=== PATIENT | female | born 1970 | race Caucasian/White ===

== ENCOUNTER 2019-04-27 13:01 | Emergency (ER) | payer MEDICAID ==
[~2019-04-27] VITALS: Ht 170.2 cm; Wt 68.0 kg
[2019-04-27 13:21] VITALS: BP_SYST 141
--- NOTE | 2019-04-27 13:26 | NUR ---
Patient triaged and placed in waiting room. VSS and patient appears in no acute distress at this time. Accompanied by self, awaiting available bed, and MD notified of need for MSE.
--- NOTE | 2019-04-27 14:25 | NUR ---
Patient to ER bed 03 for evaluation. Side rails up. Report given to Aminata LORA.
[2019-04-27] MEDS ORDERED: KETOROLAC TROMETHAMINE 30 MG VIAL IVP ONE (15:00)
[2019-04-27] MEDS ORDERED: NACL 0.9% 1,000 ML IV ONE (15:00)
--- NOTE | 2019-04-27 15:02 | NUR ---
PATIENT CAME IN COMPLAINING OF PAIN 10/10 IN LEFT LOWER BACK RADIATING TO HIP. PATIENT STATES IT HAPPENED ALL OF A SUDDENT WHEN SHE WAS SWEEPING TODAY. PATIENT STATES IT IS A SHARP, THROBBING, BURNING PAIN. PATIENT ALSO COMPLAINING OF SOME NUMBNESS AND TINGLING. PATIENT HAS SOME DIFFICULTIES WALKING. PATIENT NOT COMPLAINING OF NAUSEA OR VOMITING. PATIENT ALERT AND ORIENTED X4.
[2019-04-27 15:34] LABS: BILIRUBIN,URINE NEGATIVE (NEGATIVE); BLOOD, URINE NEGATIVE (NEGATIVE); CLARITY/URINE CLEAR (CLEAR); COLOR,URINE YELLOW (YELLOW); GLUCOSE,URINE NEGATIVE (NEGATIVE); KETONES,URINE NEGATIVE (NEGATIVE); LEUKOCYTE ESTERASE ,URINE NEGATIVE (NEGATIVE); NITRITE, URINE NEGATIVE (NEGATIVE); PROTEIN URINE NEGATIVE (NEGATIVE); UROBILINOGEN,URINE 0.2 (0.2-1.0)
--- NOTE | 2019-04-27 15:40 | NUR ---
PATIENT LEAVING TO CT VIA GURNEY IN STABLE CONDITION.
--- NOTE | 2019-04-27 15:49 | NUR ---
PATIENT BACK FROM CT IN STABLE CONDITION.
[2019-04-27 15:57] LABS: BASOPHILS % (AUTO) 0.4 % (0.0-2.0); EOSINOPHILS # (AUTO) 0.1 K/uL (0.0-0.4); EOSINOPHILS % (AUTO) 1.6 % (0.0-4.0); HEMATOCRIT 43.2 % (36-48); HEMOGLOBIN 14.4 g/dL (12.0-16.0); LYMPHOCYTES # (AUTO) 2.3 K/uL (1.0-5.5); LYMPHOCYTES % (AUTO) 24.6 % (20.5-51.5); MEAN CORPUSCULAR HEMOGLOBIN 31 pg (27-31); MEAN CORPUSCULAR HGB CONC 33 % (32-36); MEAN CORPUSCULAR VOLUME 94 fL (79.0-98.0); MONOCYTES # (AUTO) 0.4 K/uL (0.0-1.0); MONOCYTES % (AUTO) 4.7 % (1.7-9.3); NEUTROPHILS # (AUTO) 6.5 K/uL (1.8-7.7); NEUTROPHILS % (AUTO) 68.7 % (40.0-70.0); PLATELET COUNT (AUTO) 232 K/uL (130-430); RED CELL DISTRIBUTION WIDTH 14.5 % (9.0-15.0); WHITE BLOOD COUNT (AUTO) 9.4 K/uL (4.8-10.8)
--- NOTE | 2019-04-27 16:05 | NUR ---
PATIENT STATES HER PAIN IS ABOUT THE SAME AFTER PAIN MEDS GIVEN. DR DINH AWARE.
[2019-04-27 16:22] LABS: CALCIUM 8.9 mg/dL (8.4-11.0); CREATININE 0.78 mg/dL (0.55-1.30); POTASSIUM 3.6 mmol/L (3.5-5.1)
[2019-04-27 16:27] LABS: ALBUMIN 3.3 g/dL (3.4-4.8); TOTAL BILIRUBIN 0.3 mg/dL (0.0-1.0)
--- NOTE | 2019-04-27 17:17 | NUR ---
DR DINH AT BEDSIDE TALKING TO PATIENT.
--- NOTE | 2019-04-27 17:39 | NUR ---
Patient given written and verbal discharge instructions and verbalizes understanding. ER MD discussed with patient the results and treatment provided. Patient in stable condition. ID arm band removed. IV catheter removed intact and dressing applied, no active bleeding. Rx of NAPROSYN AND FLEXERIL given. Patient educated on pain management and to follow up with PMD. Pain Scale 5/10 TOLERABLE. PATIENT GIVEN PAIN MEDS AND MUSCLE RELAXER. Opportunity for questions provided and answered. Medication side effect fact sheet provided.
[2019-04-27 17:40] VITALS: BP_SYST 135
== END 2019-04-27 17:39 | disposition home or self-care (01) ==
LOC: SED 13:01
DX: S39.012A Strain of muscle, fascia and tendon of lower back, initial encounter (principal); Z90.49 Acquired absence of other specified parts of digestive tract; X50.9XXA Other and unspecified overexertion or strenuous movements or postures, initial encounter; Y93.89 Activity, other specified; Y92.89 Other specified places as the place of occurrence of the external cause; Y99.8 Other external cause status
CPT/HCPCS: 36415; 74176; 80053; 81003; 81025; 83690; 85025; 96374; 99284; J1885; J7030